=== PATIENT | female | born 1990 | race Caucasian/White ===

== ENCOUNTER 2022-12-20 17:49 | Emergency (ER) | payer OTHER ==
[~2022-12-20] VITALS: Ht 154.9 cm; Wt 62.8 kg
[2022-12-20 18:11] VITALS: BP 107/78
--- NOTE | 2022-12-20 18:16 | NUR ---
PT AMB TO BED 12.
[2022-12-20] MEDS ORDERED: ALUMINUM HYD/MAG/SIMETHICONE 30 ML UDC PO ONE (18:30)
[2022-12-20] MEDS ORDERED: FAMOTIDINE 20 MG TAB PO ONE (18:30)
[2022-12-20] MEDS ORDERED: ACETAMINOPHEN EXTRA STRENGTH 500 MG TAB PO ONE (18:30)
[2022-12-20] MEDS ORDERED: DICYCLOMINE HCL LIQUID 10 MG/5 ML UDC PO ONE (18:30)
--- NOTE | 2022-12-20 18:37 | NUR ---
LAB AT BEDSIDE.
[2022-12-20 18:43] LABS: BASOPHILS % (AUTO) 0.3 % (0.0-2.0); EOSINOPHILS # (AUTO) 0.2 K/uL (0-0.4); EOSINOPHILS % (AUTO) 2.1 % (0.0-4.0); HEMATOCRIT 40.1 % (36-48); HEMOGLOBIN 13.4 g/dL (12.0-16.0); LYMPHOCYTES # (AUTO) 1.7 K/uL (2.5-16.5); MEAN CORPUSCULAR HEMOGLOBIN 30 pg (27-31); MEAN CORPUSCULAR HGB CONC 34 g/dL (33-37); MEAN CORPUSCULAR VOLUME 90.4 fL (80-94); MONOCYTES # (AUTO) 0.8 K/uL (0.8-1.0); MONOCYTES % (AUTO) 7.3 % (1.7-9.3); NEUTROPHILS # (AUTO) 8.5 K/uL (1.8-7.7); NEUTROPHILS % (AUTO) 75.3 % (42.2-75.2); PLATELET COUNT (AUTO) 272 K/uL (140-450); RED BLOOD CELL COUNT(AUTO) 4.43 MIL/uL (4.20-5.40); RED CELL DISTRIBUTION WIDTH 13.5 % (11.6-13.7); WHITE BLOOD COUNT (AUTO) 11.3 K/uL (4.8-10.8)
[2022-12-20 18:47] LABS: APPEARANCE,URINE CLEAR (CLEAR); BILIRUBIN,URINE NEGATIVE (NEGATIVE); BLOOD, URINE 1+ (NEGATIVE); COLOR,URINE YELLOW (YELLOW); LEUKOCYTE ESTERASE ,URINE 3+ (NEGATIVE); NITRITE, URINE NEGATIVE (NEGATIVE); UGLUCOSE NEGATIVE (NEGATIVE)
--- NOTE | 2022-12-20 18:54 | NUR ---
/ PRESENTS TO ED WITH C/O ABDOMINAL PAIN, N/V/D SINCE MONDAY. PATIENT REPORTS / INTERMITTENT "BURNING" LIKE PAIN. DENIES RECENT FEVERS, CHILLS, CP, SOB OR RECENT SICK CONTACTS.
[2022-12-20 18:59] LABS: WBC,URINE 16-25 (MOD) /HPF (0-5)
[2022-12-20 19:04] LABS: ALBUMIN 4.2 g/dL (3.4-5.0); ANION GAP 10.7 (8-16); CARBON DIOXIDE 27.3 mmol/L (21-32); CREATININE 0.8 mg/dL (0.6-1.3); TOTAL BILIRUBIN 0.8 mg/dL (0.0-1.0)
--- NOTE | 2022-12-20 19:14 | NUR ---
Pt report given to ENMA SLOAN. Transfer of care at this time.
--- NOTE | 2022-12-20 19:16 | NUR ---
REPORT FROM MARCO ANTONIO NORWOOD
[2022-12-20] MEDS ORDERED: CEPH-588 PO (19:31)
[2022-12-20] MEDS ORDERED: ATRO1TAB PO (19:31)
[2022-12-20] MEDS ORDERED: BEN10 PO (19:31)
--- NOTE | 2022-12-20 19:33 | NUR ---
PT IN [facility] PENDING DISPO. UPDATED PT ON PLAN. NAD NOTED AT THIS TIME. VERBALIZED UNDERSTANDING.
== END 2022-12-20 19:42 | disposition home or self-care (01) ==
LOC: MED 17:49
DX: A08.4 Viral intestinal infection, unspecified (principal); N39.0 Urinary tract infection, site not specified
CPT/HCPCS: 36415; 80053; 81001; 81025; 83690; 85025; 87086; 99284